=== PATIENT | female | born 1990 | race Caucasian/White ===

== ENCOUNTER 2021-02-04 03:59 | Emergency (ER) | payer OTHER ==
[2021-02-04] MEDS ORDERED: CYCLOBENZAPRINE10 MG PO (09:06)
== END 2021-02-04 09:27 | disposition home or self-care (01) ==
LOC: ER1 03:59
DX: S39.012A Strain of muscle, fascia and tendon of lower back, initial encounter (principal); V49.40XA Driver injured in collision with unspecified motor vehicles in traffic accident, initial encounter; Y92.410 Unspecified street and highway as the place of occurrence of the external cause
CPT/HCPCS: 96372; 99282; J1885